=== PATIENT | female | born 1940 ===

== ENCOUNTER 2020-10-24 12:59 | Outpatient (CLI) | payer MEDICARE, SELFPAY ==
--- NOTE | ~2020-10-24 | US_ITS ---
US venous doppler LE RT DATE: 10/24/2020 13:35 INDICATION: Swelling, lump for a couple of days. TECHNIQUE: Real-time imaging, color flow imaging and Doppler analysis of the veins of the right lower extremity COMPARISON: None FINDINGS: There is spontaneous and phasic flow and normal augmentation and color flow signal and norm al compression of the veins of the right lower extremity. There is a varicose vein in the area of clinical reported lump. IMPRESSION: No evidence of deep venous thrombosis of right leg Reviewed, dictated and finalized at [facility]. Reviewed, dictated and finalized at [facility].
== END 2020-10-24 13:00 | disposition home or self-care (01) ==
LOC: ANHIMG 13:02
PROVIDERS: PCP Internal Medicine; Visit Provider Nurse Practitioner
DX: R22.42 Localized swelling, mass and lump, left lower limb (principal); Z86.718 Personal history of other venous thrombosis and embolism
CPT/HCPCS: 93971